=== PATIENT | female | born 1950 | race Caucasian/White ===

== ENCOUNTER → 2016-11-27 | Outpatient (REF) | payer OTHER | LOC: M LAB REF 15:46 | PROVIDERS: ATTEND Internal Medicine Endocrinology, Diabetes & Metabolism | DX: E04.1 Nontoxic single thyroid nodule (principal) ==

== ENCOUNTER → 2021-03-15 | Outpatient (CLI) | payer MEDICARE, OTHER ==
--- NOTE | 2021-03-15 13:12 | REP ---
INDICATION: NICOTINE DEP. COMPARISON: Multiple the latest 01/20/2020 also low-dose screening CT of the lungs TECHNIQUE: Axial noncontrast images from the thoracic inlet to the upper abdomen using low-dose lung screening technique (LDCT). Once again, as per the protocol only lung window images were sent to the read station for interpretation. FINDINGS: The right apical asymmetric density is stable. The 9 mm sized area of smoothly marginated focal pleural thickening in the right upper lobe posteriorly is stable. Scattered areas of calcific pleural plaquing are noted status quo. There are emphysematous changes with cylindrical bronchiectasis status quo. Multiple right ribs have been resected status quo. Grossly, the imaged osseous structures and imaged upper abdomen are unchanged. Grossly, the mediastinum and pulmonary anthony are unchanged. IMPRESSION: Stable lung rads category 2 low-dose screening CT of the lungs. No significant change from the prior exam. <Electronically signed by Grayson Eubanks > 03/15/21 7947
== END ==
LOC: M RAD 11:22
PROVIDERS: ATTEND Physician Assistant
DX: Z87.891 Personal history of nicotine dependence (principal)

== ENCOUNTER → 2021-04-14 | Outpatient (CLI) | payer MEDICARE, OTHER ==
[~2021-04-14] MED LIST: ALBU8.5H INH; ANOR1AER INH; IBUP-1114 PO
== END ==
LOC: M LABSMTC 11:30
PROVIDERS: ATTEND Anesthesiology
DX: Z01.812 Encounter for preprocedural laboratory examination (principal); Z20.822 Contact with and (suspected) exposure to COVID-19

== ENCOUNTER 2021-04-19 09:19 | Day surgery (SDC) | payer MEDICARE, OTHER ==
[~2021-04-19] VITALS: Ht 165.1 cm; Wt 57.2 kg
[~2021-04-19 09:19] MED LIST changes: +NS 1,000 ML IV ONE
--- OUTSIDE RECORDS SUMMARY | 2021-04-19 09:24 | CCD | Continuity of Care Document ---
Author Author Emely HAWTHORNE PA-C Organization Unknown Address [address] [place] [address] Phone [phone] Care Team Providers Care Masonry Inspector Name Role Phone WilnerAida DO AUTM [phone] Problems Active Problems Provider Date Synovitis and tenosynovitis Onset: 03/03 Social History Type Date Description Comments Sex Unknown ETOH Use Currently consumes alcohol Tobacco Use Start: Unknown Patient is a current smoker, smo kes every day Allergies and adverse reactions Description No Known Drug Allergies Medications Active Medications SIG Qnty Indications Ordering Provide r Date Ibuprofen 600mg Tablets 1 tab by mouth three times a day Unknown Immunizations Description No Information Available Vital Signs Date Vital Result Comment 03/15/2021 1:22pm Body Temperature 96.6 F Height 65 inches 5'5" Weight 129.12 lb BMI (Body Mass Index) 21.5 kg/m2 Results Description No Information Available Procedures Date Code Description Status 04/04/2021 48089 Office/Outpatient Established Mo d MDM 30-39 Min Completed 03/15/2021 62888 Office/Outpatient New Moderate M DM 45-59 Minutes Completed 03/15/2021 85643 X-Ray Wrist Complete Completed 03/15/2021 32131 Inject Tendon Sheath, Ligament C ompleted Medical Devices Description No Information Available Encounters Type Date Location Provider Dx Diagnosis Office Visit 04/04/2021 9:45a Daryl Hawthorne PA-C M6 5.4 Radial styloid tenosynovitis [de Quervain] M18.11 Unil primary osteoarth of fi rst carpometacarp joint, r hand Office Visit 03/15/2021 1:00p Daryl Hawthorne PA-C M6 5.4 Radial styloid tenosynovitis [de Quervain] M18.11 Unil primary osteoarth of fi rst carpometacarp joint, r hand Assessments Date Code Description Provider 04/04/2021 M65.4 Radial styloid tenosynovitis [de Quervain] Gee Hawthorne PA-C 04/04/2021 M18.11 Unilateral primary o steoarthritis of first carpometacarpal joint, right hand Gee Hawthorne PA-C 03/15/2021 M65.4 Radial styloid tenosynovitis [de Quervain] Gee Hawthorne PA-C 03/15/2021 M18.11 Unilateral primary o steoarthritis of first carpometacarpal joint, right hand Gee Hawthorne PA-C Plan of Treatment 04/04/2021 - Gee Hawthorne PA-C* M65.4 Radial styloid tenosynovitis [de Quervain]* Follow up:* prn * M18.11 Unilateral primary osteoarthritis of first carpometacarpal joint, right hand Functional Status Description No Information Available Mental Status Description No Information Available Referrals Description No Information Available
--- OUTSIDE RECORDS SUMMARY | 2021-04-19 09:24 | CCD ---
Author Author [facility] Organization [facility] Address Unknown Phone Unavailable Care Team Providers Care Fence Maker Name Role Phone Aida Boswell Unavailable PROBLEMS No Information ALLERGIES No Known Allergies ENCOUNTERS from 1950 to 2021-02-20 Encounter Location Date Provider Diagnosis [facility] [address] [place] [address] Feb, Aida Boswell Right wrist pain M25.531 ; Annual physic al exam Z00.00 ; Breast cancer screening by mammogram Z12.31 ; Colon cancer screening Z12.11 and Encounter for immunization Z23 IMMUNIZATIONS Vaccine Route Administration Date Status TDAP 0.5mL Boostrix IM Intramuscular Feb 15, 2021 Administere d COVID-19 dose #2 given elsewhere Unspecified Unknown Jul Administered COVID-19 dose #1 given elsewhere Unspecified Unknown Jun 21, 2020 Administered Influenza 18 yrs & older Flublok IM Intramuscular Feb 15, 2021 Administered SOCIAL HISTORY Tobacco Use: Social History Observation Description Date Details (start date - stop date) Current Smoker Sex Assigned At : Social History Observation Description Sex Assigned At Unknown Language: Question Answer Notes Languages spoken: Grenadian Sabianism: Question Answer Notes Sabianism No restorationist beliefs that would impact health care. Domestic Violence: Question Answer Notes Status: Alcohol Screening: Question Answer Notes Did you have a drink containing alcohol in the past year? Ye s Points 1 Interpretation Negative How often did you have six or more drinks on one occas ion in the past year? Never (0 points) How many drinks did you have on a typica l day when you were drinking in the past year? 1 or 2 (0 points) How often did you have a drink containing alcohol in t he past year? Monthly or less (1 point) Tobacco Use: Question Answer Notes Are you a: current smoker less than a pack a d ay Are you interested in quitting? Ready to quit Counseled the patient on tobacco use, cessation provided 10/2020 REASON FOR REFERRAL from 1950 to 2021-02-20 Reason R wrist pain chronically, wi th decreased ROM after bracing; please eval and treat. Diagnosis 1 Right wrist pain (M25.531) Referral Organization [facility] Referring Provider First Name Aida Referring Provider Last Name Andreia Referring Provider Specialty Family Medicine Referred Provider [facility],Doorkeeper apy Referred Provider Specialty Physical Therapist Referral Priority Routine General Notes Elver Mcdonald 02/15/2021 11:2 5:04 AM > faAida Gtz DO 02/15/2021 11:44:30 AM > she requests [facility] PTMElver Jimenez 02/15/2021 1:10:21 PM > refaxed to [place] Reason Patient with chronic R wrist pain, improved but not entirely alleviated with NSAIDs and bracing. Please eval and treat. Diagnosis 1 Right wrist pain (M25.531) Referral Organization [facility] Referring Provider First Name Aida Referring Provider Last Name Andreia Referring Provider Specialty Family Medicine Referred Provider [facility],Orthopedics Referred Provider Specialty Orthopedic Surgery Referral Priority Routine General Notes Elver Mcdonald 02/15/2021 11:2 3:10 AM > rx attachedElver Mcdonald 02/15/2021 11:24:22 AM > faxed Reason Never had a colonoscopy, ple ase eval and treat. Diagnosis 1 Colon cancer screening (Z12. 11) Referral Organization [facility] Referring Provider First Name Aida Referring Provider Last Name Andreia Referring Provider Specialty Family Medicine Referred Provider General Ericka HEWITT (TRINO cobb) Referred Provider Specialty General Surgery Referral Priority Routine Referral Appointment Date 2021-02-27 General Notes Elver Mcdonald 02/15/2021 1:07 :50 PM > faxElver Barrera 02/16/2021 3:41:56 PM > pt has appt. 02/27/21 at 9am VITAL SIGNS Weight 129.6 lbs Feb, Weight-kg 58.79 kg Feb, Height 5'5" in Feb, BMI 21.56 kg/m2 Feb, Heart Rate 107 /min Feb, Respiratory Rate 18 /min Feb, Temperature 98.1 degrees Fahrenheit Feb, Oximetry 99 Feb, Blood pressure systolic 132 mm Hg Feb, Blood pressure diastolic 84 mm Hg Feb, MEDICATIONS Medication SIG (Take, Route, Frequency, Duration) Notes Start Da te End Date Status Chantix 1 tab Oral for 14 days No t-Taking Ibuprofen 200 MG 2 tablets with food or milk as needed Orally prn Active PROCEDURES No Information RESULTS No Results REASON FOR VISIT 4 month, pt. is fully vaccinated MEDICAL (GENERAL) HISTORY Type Description Date Medical History neurofibromytosis Surgical History neurofibroma removal Surgical History neurofibroma nose Hospitalization History surgery related Goals Section No Information Health Concerns No Information MEDICAL EQUIPMENT No Information MENTAL STATUS No Information FUNCTIONAL STATUS No Information ASSESSMENTS Encounter Date Diagnosis Assessment Notes Treatment Notes Treatm ent Clinical Notes Feb, Right wrist pain (ICD-10 - M25.531) Feb, Annual physical exam (ICD-10 - Z00.00) Patient seen and examined. Past medical, surgical, family, social history reviewed. Discussed preventive medicine, including immunizations. Appropriate labwork was ordered 12/05 and is available under labs. Feb, Breast cancer screening by mammogram (ICD-10 - Z 12.31) Mammogram ordered. Feb, Colon cancer screening (ICD-10 - Z12.11) Feb, Encounter for immunization (ICD-10 - Z23) Immunizations reviewed. Any questions were answered. Patient agreed to immunization, and received vaccine in office today. PLAN OF TREATMENT Treatment Notes Assessment Notes Clinical Notes Annual physical exam Patient seen and ex amined. Past medical, surgical, family, social history reviewed. Discussed preventive medicine, including immunizations. Appropriate labwork was ordered 12/05 and is available under labs. Breast cancer screening by mammogram Gary mogram ordered. Encounter for immunization Immunizations reviewed. Any questions were answered. Patient agreed to immunization, and received vaccine in office today. Future Test Test Name Order Date Imm: Boostrix 0.5mL IM TDAP [id number] Imm: Flublok Quadrivalent 18 years & older 0.5mL IM In fluenza [id number] [facility] Janes Screening Bilateral (Ultrasound if Indicated ) (3D Mammo) [id number] Referrals Referral Date Details R wrist pain chronically, wi th decreased ROM after bracing; please eval and treat., Physical Therapy [facility] Patient with chronic R wrist pain, improved but not entirely alleviated with NSAIDs and bracing. Please eval and treat., Orthopedics [facility] 2021-02-27 2021-02-27, Never had a colo noscopy, please eval and treat., General Surgey ([facility]) [facility] Next Appt Details 2-3 months Reason:f/u labs Provider Name:Aida Boswell, 2021-04-17 11:00:00 AM, [address], , [place], [address], Follow Up:2-3 monthsf/u labs Insurance Providers Payer Name Payer Address Payer Phone Insured Name Patient Relati onship to Insured Coverage Start Date Coverage End Date MEDICARE Part A and B [address] [facility] [address] [phone] TEETEE FLOWERS A self [facility] [address] [address] [facility] [id number] COMPS[place]U,TEETEE A self
--- OUTSIDE RECORDS SUMMARY | 2021-04-19 09:24 | CCD | Continuity of Care Document ---
Author Author Emely HAWTHORNE PA-C Organization Unknown Address [address] [place] [address] Phone [phone] Care Team Providers Care Sas Sql Developer Name Role Phone iAda Darby DO AUTM [phone] Problems Active Problems Provider Date Synovitis and [...] Information Available Procedures Date Code Description Status 03/15/2021 93483 Office/Outpatient New Moderate M DM 45-59 Minutes Completed 03/15/2021 45939 X-Ray Wrist Complete Completed 03/15/2021 87128 Inject Tendon Sheath, Ligament C ompleted Medical Devices Description No Information Available Encounters Type Date Location Provider Dx Diagnosis Office Visit 03/15/2021 1:00p [place] Hawth[place] PA-C M6 5.4 Radial styloid tenosynovitis [de Quervain] M19.031 Primary osteoarthritis, righ t wrist Assessments Date Code Description Provider 03/15/2021 M65.4 Radial styloid tenosynovitis [de Quervain] Gee Hawthorne PA-C 03/15/2021 M19.031 Primary osteoarthritis, right wr ist Gee Hawthorne PA-C Plan of Treatment Future Appointment(s):* 04/04/2021 9:45 am - Gee Hawthorne PA-C at [place] 03/15/2021 - Gee Hawthorne PA-C* M65.4 Radial styloid tenosynovitis [de Quervain]* Follow up:* 2-3 weeks Rt wrist travon with BMS. * M19.031 Primary osteoarthritis, right wrist Functional Status Description No Information Available Mental Status Description No Information Available Referrals Description No Information Available
--- OUTSIDE RECORDS SUMMARY | 2021-04-19 09:24 | CCD | Continuity of Care Document ---
Author Author Emely BRUSH PA Organization Unknown Address [address] [place] [address] Phone [phone] Care Team Providers Care Sonogram Technician Name Role Phone Thuy White D.O. AUTM [phone] Tyrone Bowden MD AUTM [phone] Jesús Borrero AUTM [phone] AUTM Unavailable Aida Boswell D.O. AUTM [phone] Problems Active Problems Provider Date Centriacinar emphysema Dominic Mancera, PCelina Onset: 08/25/2020 Social History Type Date Description Comments Sex Unknown Tobacco Use Start: Unknown Current Cigarette Smoker 1 Pack Daily ETOH Use Occasionally consumes alcohol on e daily Tobacco Use Start: Unknown Patient is a current smoker, smo kes every day 1 ppd x50 years Recreational Drug Use Denies Drug Use Smoking Status Reviewed: 08/25/20 Patient is a current smoker, smokes every day 1 ppd x50 years Allergies and adverse reactions Description No Known Drug Allergies Medications Active Medications SIG Qnty Indications Ordering Provide r Date Chantix Continuing Month Tres 1mg T ablets 1 tab by mouth twice a day 1tabs J43.2 Simon Higginbotham DChayoOChayo 2020 Anoro Ellipta 62.5-25mcg/Inh Aeros ol 1 puff every day 60units Simon Higginbotham D.O. 02/11/2019 Ibuprofen 200mg Capsules by mouth as needed Unknown Immunizations CPT Code Status Date Vaccine Lot # [id number] Given 12/11/2019 Prevnar 13 [id number] Vital Signs Date Vital Result Comment 02/27/2021 9:06am BP Systolic 123 mmHg BP Diastolic 81 mmHg Body Temperature 97.1 F Height 65 inches 5'5" Weight 130.50 lb BMI (Body Mass Index) 21.7 kg/m2 [place] Body Weight 125 lb Weight 59.195 kg BSA (Body Surface Area) 1.65 m2 08/25/2020 2:45pm BP Systolic 124 mmHg BP Diastolic 82 mmHg Heart Rate 92 /min O2 % BldC Oximetry 95 % Body Temperature 97.4 F Height 65.5 inches 5'5.50" Weight 130.00 lb BMI (Body Mass Index) 21.3 kg/m2 [place] Body Weight 125 lb Weight 58.968 kg BSA (Body Surface Area) 1.66 m2 Results Description No Information Available Procedures Date Code Description Status 02/27/2021 76918 Office/Outpatient New Low MDM 30 -44 Minutes Completed Medical Devices Description No Information Available Encounters Type Date Location Provider Dx Diagnosis Office Visit 02/27/2021 9:00a [facility] MAX Murphy Z12.11 Encounter for screening for malignant ne oplasm of colon Assessments Date Code Description Provider 02/27/2021 Z12.11 Encounter for screening for des gnant neoplasm of colon MAX Mac Plan of Treatment Future Appointment(s):* 05/01/2021 10:15 am - MAX Mac at [facility] * 04/19/2021 10:30 am - Celestino Tsai DO at [facility] 02/27/2021 - MAX Mac* Z12.11 Encounter for screening for malignant neoplasm of colon Functional Status Functional Condition Comment Date Status Independent with all ADL's Activ e Independent with all IADL's Acti ve Mental Status Mental Condition Comment Date Status Cognitive ability not impaired A ctive Referrals Refer to Reason for Referral Status Appt Date Celestino Tsai D.O. SCHEDULE COLONOSCOPY Scheduled [address] [place], [place] [id number] [phone]
--- OUTSIDE RECORDS SUMMARY | 2021-04-19 09:24 | CCD | Continuity of Care Document ---
Author Author Emely BRUSH PA Organization Unknown Address [address] [facility] [address] [place] [address] Phone [phone] Care Team Providers Care Communications Assistant Name Role Phone Thuy White D.O. AUTM [phone] Tyrone Bowden MD AUTM [phone] Jesús Borrero AUTM [phone] AUTM Unavailable Aida Boswell D.O. AUTM Problems Active Problems Provider Date Centriacinar emphysema [...] CPT Code Status Date Vaccine Lot # [id number] Given 12/11/2019 Prevnar 13 [id number] Vital Signs Date Vital Result Comment 02/27/2021 9:06am BP Systolic 123 mmHg BP Diastolic 81 mmHg Body Temperature 97.1 F Height 65 inches 5'5" Weight 130.50 lb BMI (Body Mass Index) 21.7 kg/m2 [place] Body Weight 125 lb Weight 59.195 kg BSA (Body Surface Area) 1.65 m2 08/25/2020 2:45pm BP Systolic 124 mmHg BP Diastolic 82 mmHg Heart Rate 92 /min O2 % BldC Oximetry 95 % Body Temperature 97.4 F Height 65.5 inches 5'5.50" Weight 130.00 lb BMI (Body Mass Index) 21.3 kg/m2 [place] Body Weight 125 lb Weight 58.968 kg BSA (Body Surface Area) 1.66 m2 Results Description No Information Available Procedures Description No Information Available Medical Devices Description No Information Available Encounters Description No Information Available Assessments Description No Information Available Plan of Treatment No Information Available Functional Status Functional Condition Comment Date Status Independent with all ADL's Activ e Independent with all IADL's Acti ve Mental Status Mental Condition Comment Date Status Cognitive ability not impaired A ctive Referrals Refer to Reason for Referral Status Appt Date Celestino Tsai D.O. SCHEDULE COLONOSCOPY Scheduled [address] [place] [address] [phone]
--- OUTSIDE RECORDS SUMMARY | 2021-04-19 09:24 | CCD | Continuity of Care Document ---
Author Author [facility] Address [address] [place] [address] Phone Care Team Providers Care Client Sales And Service Officer Name Role Phone Thai ROBLES CYNTHIA PCP Health Concerns Health Concerns may be documented in an alternate section. Allergies, Adverse Reactions, Alerts No allergy information available. Social History Assigned Sex Female Problems No problem information available. Medications No medication information available. Immunizations No Immunization Information Available Medical Equipment No Medical Equipment Information available Procedures No procedure information available. Relevant Diagnostic Tests and/or Laboratory Data No known relevant diagnostic tests and/or laboratory data. Vital Signs No vital signs result information available. Insurance Providers Guarantor TEETEE FLOWERS Address [address] [place] [address] Contact Info. Home Phone: Payer Policy Id Coverage Id Subscriber's Name Subscriber Id Effective Date Expiration Date [facility] [id number] TEETEE FLOWERSus amor 2016 [employer] [id number] TEETEE FLOWERS [facility] [id number] TEETEE FLOWERS Encounters Encounter Location(s) Ar rival/Admit Date Discharge/Depart Date Provider(s) Discharged [facility] March 14, 2021 5:30am April 11, 2021 10:37am WATSON HAWTHORNE Discharged [facility] February 24, 2021 4:00am March 10, 2021 10:35am JELENA PAGE Functional Status No Functional Status information available Mental Status No Mental Status Information Available Assessments No Assessments Information Available Goals Goals may be documented in an alternate section.
--- OUTSIDE RECORDS SUMMARY | 2021-04-19 09:24 | CCD | Continuity of Care Document ---
Author Author Emely HAWTHORNE PA-C Organization Unknown Address [address] [place] [address] Phone [phone] Care Team Providers Care Laborer Car Barn Name Role Phone Wilner Aida M DO AUTM [phone] Problems Active Problems Provider Date Synovitis and [...] Available Procedures Date Code Description Status 03/15/2021 03430 Office/Outpatient New Moderate M DM 45-59 Minutes Completed 03/15/2021 10933 X-Ray Wrist Complete Completed 03/15/2021 43271 Inject Tendon Sheath, Ligament C ompleted Medical Devices Description No Information Available Encounters Type Date Location Provider Dx Diagnosis Office Visit 03/15/2021 1:00p [place] Gee Hawthorne PA-C M6 5.4 Radial styloid tenosynovitis [de Quervain] M18.11 Unil primary osteoarth of fi rst carpometacarp joint, r hand Assessments Date Code Description Provider 03/15/2021 M65.4 Radial styloid tenosynovitis [de Quervain] Gee Hawthorne PA-C 03/15/2021 M18.11 Unilateral primary o steoarthritis of first carpometacarpal joint, right hand Gee Hawthorne PA-C Plan of Treatment Future Appointment(s):* 04/04/2021 9:45 am - Gee Hawthorne PA-C at [place] 03/15/2021 - Gee Hawthorne PA-C* M65.4 Radial styloid tenosynovitis [de Quervain]* Follow up:* 2-3 weeks Rt wrist travon with BMS. * M18.11 Unilateral primary osteoarthritis of first carpometacarpal joint, right hand Functional Status Description No Information Available Mental Status Description No Information Available Referrals Description No Information Available
--- OUTSIDE RECORDS SUMMARY | 2021-04-19 09:24 | CCD | Continuity of Care Document ---
Author Author Emely HAWTHORNE PA-C Organization Unknown Address [address] [place] [address] Phone [phone] Care Team Providers Care Machine Chain Maker Name Role Phone Aida Darby DO AUTM [phone] Problems Active Problems Provider Date Synovitis and [...] Available Procedures Date Code Description Status 03/15/2021 14033 Office/Outpatient New Moderate M DM 45-59 Minutes Completed 03/15/2021 10085 X-Ray Wrist Complete Completed 03/15/2021 07148 Inject Tendon Sheath, Ligament C ompleted Medical Devices Description No Information Available Encounters Type Date Location Provider Dx Diagnosis Office Visit 03/15/2021 1:00p [place] Haw[place] PA-C M6 5.4 Radial styloid tenosynovitis [de Quervain] M19.031 Primary osteoarthritis, righ t wrist Assessments Date Code Description Provider 03/15/2021 M65.4 Radial styloid tenosynovitis [de Quervain] Gee Hawthorne PA-C 03/15/2021 M19.031 Primary osteoarthritis, right wr ist Gee Hawthorne PA-C Plan of Treatment Future Appointment(s):* 04/04/2021 9:45 am - Gee Hawthorne PA-C at [place] 03/15/2021 - Gee Hawthorne PA-C* M65.4 Radial styloid tenosynovitis [de Quervain]* Follow up:* 2-3 weeks Rt wrist travon with BMS. * M19.031 Primary osteoarthritis, right wrist Functional Status Description No Information Available Mental Status Description No Information Available Referrals Description No Information Available
--- OUTSIDE RECORDS SUMMARY | 2021-04-19 09:24 | CCD | Continuity of Care Document ---
Author Author [facility] Address [address] [place] [address] Phone Care Team Providers Care Roundhouse Supervisor Name Role Phone Thai ROBLES PCP Health Concerns Health Concerns may be [...] available. Insurance Providers Guarantor TEETEE FLOWERS Address [address] [place] [address] Contact Info. Home Phone: Payer Policy Id Coverage Id Subscriber's Name Subscriber Id Effective Date Expiration Date MEDICARE - [place] [id number] TEETEE FLOWERSus t 2016 [employer] [id number] TEETEE FLOWERS [facility] [id number] TEETEE FLOWERS Encounters Encounter Location(s) Ar rival/Admit Date Discharge/Depart Date Provider(s) Discharged [facility] February 24, 2021 5:00am March 10, 2021 11:35am JELENA PAGE Functional Status No Functional Status information available Mental Status No Mental Status Information Available Assessments No Assessments Information Available Goals Goals may be documented in an alternate section.
--- OUTSIDE RECORDS SUMMARY | 2021-04-19 09:25 | CCD ---
Author Author [facility] Organization [facility] Address Unknown Phone Unavailable Care Team Providers Care Vice President & General Manager [employer] Name Role Phone Mo, A Radha CORPORATE RESPONSIBILITY OFFICER Unavailable Unavailable Mo, A Radha CORPORATE RESPONSIBILITY OFFICER Unavailable Unavailable Mo, A Radha CORPORATE RESPONSIBILITY OFFICER Unavailable Unavailable Mo, A Radha CORPORATE RESPONSIBILITY OFFICER Unavailable Unavailable Mo, A Radha CORPORATE RESPONSIBILITY OFFICER Unavailable Unavailable Mo, A Radha CORPORATE RESPONSIBILITY OFFICER Unavailable Unavailable Mo, A Radha CORPORATE RESPONSIBILITY OFFICER Unavailable Unavailable Mo, A Radha CORPORATE RESPONSIBILITY OFFICER Unavailable Unavailable Mo, A Radha CORPORATE RESPONSIBILITY OFFICER Unavailable Unavailable Mo, A Radha CORPORATE RESPONSIBILITY OFFICER Unavailable Unavailable Mo, A Radha CORPORATE RESPONSIBILITY OFFICER Unavailable Unavailable Mo, A Radha CORPORATE RESPONSIBILITY OFFICER Unavailable Unavailable Mo, A Radha CORPORATE RESPONSIBILITY OFFICER Unavailable Unavailable Mo, A Radha CORPORATE RESPONSIBILITY OFFICER Unavailable Unavailable Mo, A Radha CORPORATE RESPONSIBILITY OFFICER Unavailable Unavailable Mo, A Radha CORPORATE RESPONSIBILITY OFFICER Unavailable Unavailable Mo, A Radha CORPORATE RESPONSIBILITY OFFICER Unavailable Unavailable Mo, A Radha CORPORATE RESPONSIBILITY OFFICER Unavailable Unavailable Mo, A Radha CORPORATE RESPONSIBILITY OFFICER Unavailable Unavailable Mo, A Radha CORPORATE RESPONSIBILITY OFFICER Unavailable Unavailable Mo, A Radha CORPORATE RESPONSIBILITY OFFICER Unavailable Unavailable Mo, A Radha CORPORATE RESPONSIBILITY OFFICER Unavailable Unavailable Mo, A Radha CORPORATE RESPONSIBILITY OFFICER Unavailable Unavailable Mo, A Radha CORPORATE RESPONSIBILITY OFFICER Unavailable Unavailable Mo, A Radha CORPORATE RESPONSIBILITY OFFICER Unavailable Unavailable Mo, A Radha CORPORATE RESPONSIBILITY OFFICER Unavailable Unavailable Mo, A Radha CORPORATE RESPONSIBILITY OFFICER Unavailable Unavailable Mo, A Radha CORPORATE RESPONSIBILITY OFFICER Unavailable Unavailable Mo, A Radha CORPORATE RESPONSIBILITY OFFICER Unavailable Unavailable Mo, A Radha CORPORATE RESPONSIBILITY OFFICER Unavailable Unavailable Mo, A Radha CORPORATE RESPONSIBILITY OFFICER Unavailable Unavailable Mo, A Radha CORPORATE RESPONSIBILITY OFFICER Unavailable Unavailable Mo, A Radha CORPORATE RESPONSIBILITY OFFICER Unavailable Unavailable Mo, A Radha CORPORATE RESPONSIBILITY OFFICER Unavailable Unavailable Mo, A Radha CORPORATE RESPONSIBILITY OFFICER Unavailable Unavailable Mo, A Radha CORPORATE RESPONSIBILITY OFFICER Unavailable Unavailable Mo, A Radha CORPORATE RESPONSIBILITY OFFICER Unavailable Unavailable Mo, A Radha CORPORATE RESPONSIBILITY OFFICER Unavailable Unavailable Mo, A Radha CORPORATE RESPONSIBILITY OFFICER Unavailable Unavailable Mo, A Radha CORPORATE RESPONSIBILITY OFFICER Unavailable Unavailable Mo, A Radha CORPORATE RESPONSIBILITY OFFICER Unavailable Unavailable Mo, A Radha CORPORATE RESPONSIBILITY OFFICER Unavailable Unavailable Mo, A Radha CORPORATE RESPONSIBILITY OFFICER Unavailable Unavailable Mo, A Radha CORPORATE RESPONSIBILITY OFFICER Unavailable Unavailable Mo, A Radha CORPORATE RESPONSIBILITY OFFICER Unavailable Unavailable Mo, A Radha CORPORATE RESPONSIBILITY OFFICER Unavailable Unavailable Mo, A Radha CORPORATE RESPONSIBILITY OFFICER Unavailable Unavailable Mo, A Radha CORPORATE RESPONSIBILITY OFFICER Unavailable Unavailable Mo, A Radha CORPORATE RESPONSIBILITY OFFICER Unavailable Unavailable Mo, A Radha CORPORATE RESPONSIBILITY OFFICER Unavailable Unavailable Mo, A Radha CORPORATE RESPONSIBILITY OFFICER Unavailable Unavailable Mo, A Radha CORPORATE RESPONSIBILITY OFFICER Unavailable Unavailable Mo, A Radha CORPORATE RESPONSIBILITY OFFICER Unavailable Unavailable Mo, A Radha CORPORATE RESPONSIBILITY OFFICER Unavailable Unavailable Mo, A Radha CORPORATE RESPONSIBILITY OFFICER Unavailable Unavailable Mo, A Radha CORPORATE RESPONSIBILITY OFFICER Unavailable Unavailable Morris, M Barratt PA Unavailable Unavailable Morris, M Barratt PA Unavailable Unavailable Morris, M Barratt PA Unavailable Unavailable Morris, M Barratt PA Unavailable Unavailable Morris, M Barratt PA Unavailable Unavailable Morris, M Barratt PA Unavailable Unavailable Morris, M Barratt PA Unavailable Unavailable Morris, M Barratt PA Unavailable Unavailable Morris, M Barratt PA Unavailable Unavailable Morris, M Barratt PA Unavailable Unavailable Morris, M Barratt PA Unavailable Unavailable Morris, M Barratt PA Unavailable Unavailable Morris, M Barratt PA Unavailable Unavailable Morris, M Barratt PA Unavailable Unavailable Morris, M Barratt PA Unavailable Unavailable Morris, M Barratt PA Unavailable Unavailable Morris, M Barratt PA Unavailable Unavailable Morris, M Barratt PA Unavailable Unavailable Morris, M Barratt PA Unavailable Unavailable Morris, M Barratt PA Unavailable Unavailable Morris, M Barratt PA Unavailable Unavailable Morris, M Barratt PA Unavailable Unavailable Morris, M Barratt PA Unavailable Unavailable Morris, M Barratt PA Unavailable Unavailable Morris, M Barratt PA Unavailable Unavailable Morris, M Barratt PA Unavailable Unavailable Morris, M Barratt PA Unavailable Unavailable Morris, M Barratt PA Unavailable Unavailable Morris, M Barratt PA Unavailable Unavailable MARGARET, A CYNTHIA DO Unavailable Unavailable MARGARET, A CYNTHIA DO Unavailable Unavailable MARGARET, A CYNTHIA DO Unavailable Unavailable MARGARET, A CYNTHIA DO Unavailable Unavailable MARGARET, A CYNTHIA DO Unavailable Unavailable MARGARET, A CYNTHIA DO Unavailable Unavailable MARGARET, A CYNTHIA DO Unavailable Unavailable MARGARET, A CYNTHIA DO Unavailable Unavailable MARGARET, A CYNTHIA DO Unavailable Unavailable MARGARET, A CYNTHIA DO Unavailable Unavailable MARGARET, A CYNTHIA DO Unavailable Unavailable MARGARET, A CYNTHIA DO Unavailable Unavailable MARGARET, A CYNTHIA DO Unavailable Unavailable MARGARET, A CYNTHIA DO Unavailable Unavailable MARGARET, A CYNTHIA DO Unavailable Unavailable MARGARET, A CYNTHIA DO Unavailable Unavailable MARGARET, A CYNTHIA DO Unavailable Unavailable MARGARET, A CYNTHIA DO Unavailable Unavailable MARGARET, A CYNTHIA DO Unavailable Unavailable MARGARET, A CYNTHIA DO Unavailable Unavailable MARGARET, A CYNTHIA DO Unavailable Unavailable MARGARET, A CYNTHIA DO Unavailable Unavailable MARGARET, A CYNTHIA DO Unavailable Unavailable MARGARET, A CYNTHIA DO Unavailable Unavailable MARGARET, A CYNTHIA DO Unavailable Unavailable MARGARET, A CYNTHIA DO Unavailable Unavailable MARGARET, A CYNTHIA DO Unavailable Unavailable MARGARET, A CYNTHIA DO Unavailable Unavailable MARGARET, A CYNTHIA DO Unavailable Unavailable MARGARET, A CYNTHIA DO Unavailable Unavailable MARGARET, A CYNTHIA DO Unavailable Unavailable MARGARET, A CYNTHIA DO Unavailable Unavailable MARGARET, A CYNTHIA DO Unavailable Unavailable MARGARET, A CYNTHIA DO Unavailable Unavailable MARGARET, A CYNTHIA DO Unavailable Unavailable MARGARET, A CYNTHIA DO Unavailable Unavailable MARGARET, A CYNTHIA DO Unavailable Unavailable MARGARET, A CYNTHIA DO Unavailable Unavailable MARGARET, A CYNTHIA DO Unavailable Unavailable MARGARET, A CYNTHIA DO Unavailable Unavailable MARGARET, A CYNTHIA DO Unavailable Unavailable MARGARET, A CYNTHIA DO Unavailable Unavailable MARGARET, A CYNTHIA DO Unavailable Unavailable MARGARET, A CYNTHIA DO Unavailable Unavailable MARGARET, A CYNTHIA DO Unavailable Unavailable MARGARET, A CYNTHIA DO Unavailable Unavailable MARGARET, A CYNTHIA DO Unavailable Unavailable MARGARET, A CYNTHIA DO Unavailable Unavailable MARGARET, A CYNTHIA DO Unavailable Unavailable MARGARET, A CYNTHIA DO Unavailable Unavailable MARGARET, A CYNTHIA DO Unavailable Unavailable MARGARET, A CYNTHIA DO Unavailable Unavailable MARGARET, A CYNTHIA DO Unavailable Unavailable MARGARET, A CYNTHIA DO Unavailable Unavailable MARGARET, A CYNTHIA DO Unavailable Unavailable MARGARET, A CYNTHIA DO Unavailable Unavailable MARGARET, A CYNTHIA DO Unavailable Unavailable MARGARET, A CYNTHIA DO Unavailable Unavailable MARGARET, A CYNTHIA DO Unavailable Unavailable MARGARET, A CYNTHIA DO Unavailable Unavailable MARGARET, A CYNTHIA DO Unavailable Unavailable MARGARET, A CYNTHIA DO Unavailable Unavailable MARGARET, A CYNTHIA DO Unavailable Unavailable MARGARET, A CYNTHIA DO Unavailable Unavailable MARGARET, A CYNTHIA DO Unavailable Unavailable MARGARET, A CYNTHIA DO Unavailable Unavailable Wilner-Tartell, M Aida DO Unavailable Unavailabl e Wilner-Tartell, M Aida DO Unavailable Unavailabl e Wilner-Tartell, M Aida DO Unavailable Unavailabl e Wilner-Tartell, M Aida DO Unavailable Unavailabl e Wilner-Tartell, M Aida DO Unavailable Unavailabl e Wilner-Tartell, M Aida DO Unavailable Unavailabl e Wilner-Tartell, M Aida DO Unavailable Unavailabl e Wilner-Tartell, M Aida DO Unavailable Unavailabl e Wilner-Tartell, M Aida DO Unavailable Unavailabl e Wilner-Tartell, M Aida DO Unavailable Unavailabl e Wilner-Tartell, M Aida DO Unavailable Unavailabl e Wilner-Tartell, M Aida DO Unavailable Unavailabl e Wilner-Tartell, M Aida DO Unavailable Unavailabl e Wilner-Tartell, M Aida DO Unavailable Unavailabl e Wilner-Tartell, M Aida DO Unavailable Unavailabl e Wilner-Tartell, M Aida DO Unavailable Unavailabl e Wilner-Tartell, M Aida DO Unavailable Unavailabl e Wilner-Tartell, M Aida DO Unavailable Unavailabl e Wilner-Tartell, M Aida DO Unavailable Unavailabl e Wilner-Tartell, M Aida DO Unavailable Unavailabl e Wilner-Tartell, M Aida DO Unavailable Unavailabl e Wilner-Tartell, M Aida DO Unavailable Unavailabl e Wilner-Tartell, M Aida DO Unavailable Unavailabl e Wilner-Tartell, M Aida DO Unavailable Unavailabl e Wilner-Tartell, M Aida DO Unavailable Unavailabl e Wilner-Tartell, M Aida DO Unavailable Unavailabl e Wilner-Tartell, M Aida DO Unavailable Unavailabl e Wilner-Tartell, M Aida DO Unavailable Unavailabl e Wilner-Tartell, M Aida DO Unavailable Unavailabl e Wilner-Tartell, M Aida DO Unavailable Unavailabl e Wilner-Tartell, M Aida DO Unavailable Unavailabl e Wilner-Tartell, M Aida DO Unavailable Unavailabl e Wilner-Tartell, M Aida DO Unavailable Unavailabl e Wilner-Tartell, M Aida DO Unavailable Unavailabl e Wilner-Tartell, M Aida DO Unavailable Unavailabl e Wilner-Tartell, M Aida DO Unavailable Unavailabl e Wilner-Tartell, M Aida DO Unavailable Unavailabl e Wilner-Tartell, M Aida DO Unavailable Unavailabl e Wilner-Tartell, M Aida DO Unavailable Unavailabl e Wilner-Tartell, M Aida DO Unavailable Unavailabl e Wilner-Tartell, M Aida DO Unavailable Unavailabl e Wilner-Tartell, M Aida DO Unavailable Unavailabl e Wilner-Tartell, M Aida DO Unavailable Unavailabl e Wilner-Tartell, M Aida DO Unavailable Unavailabl e Wilner-Tartell, M Aida DO Unavailable Unavailabl e Wilner-Tartell, M Aida DO Unavailable Unavailabl e Wilner-Tartell, M Aida DO Unavailable Unavailabl e Wilner-Tartell, M Aida DO Unavailable Unavailabl e Wilner-Tartell, M Aida DO Unavailable Unavailabl e Wilner-Tartell, M Aida DO Unavailable Unavailabl e Wilner-Tartell, M Aida DO Unavailable Unavailabl e Wilner-Tartell, M Aida DO Unavailable Unavailabl e Wilner-Tartell, M Aida DO Unavailable Unavailabl e Wilner-Tartell, M Aida DO Unavailable Unavailabl e Wilner-Tartell, M Aida DO Unavailable Unavailabl e Hernandez, L Nanda RPA Unavailable Unavailable Hernandez, L Nanda RPA Unavailable Unavailable Hernandez, L Nanda RPA Unavailable Unavailable Hernandez, L Nanda RPA Unavailable Unavailable Hernandez, L Nanda RPA Unavailable Unavailable Hernandez, L Nanda RPA Unavailable Unavailable Hernandez, L Nanda RPA Unavailable Unavailable Hernandez, L Nanda RPA Unavailable Unavailable Hernandez, L Nanda RPA Unavailable Unavailable Hernandez, L Nanda RPA Unavailable Unavailable Hernandez, L Nanda RPA Unavailable Unavailable Hernandez, L Nanda RPA Unavailable Unavailable Hernandez, L Nanda RPA Unavailable Unavailable Hernandez, L Nanda RPA Unavailable Unavailable Hernandez, L Nanda RPA Unavailable Unavailable Hernandez, L Nanda RPA Unavailable Unavailable Hernandez, L Nanda RPA Unavailable Unavailable Hernandez, L Nanda RPA Unavailable Unavailable Hernandez, L Nanda RPA Unavailable Unavailable Hernandez, L Nanda RPA Unavailable Unavailable Hernandez, L Nanda RPA Unavailable Unavailable Hernandez, L Nanda RPA Unavailable Unavailable Hernandez, L Nanda RPA Unavailable Unavailable Hernandez, L Nanda RPA Unavailable Unavailable Hernandez, L Nanda RPA Unavailable Unavailable Hernandez, L Nanda RPA Unavailable Unavailable Hernandez, L Nanda RPA Unavailable Unavailable Hernandez, L Nanda RPA Unavailable Unavailable Hernandez, L Nanda RPA Unavailable Unavailable Hernandez, L Nanda RPA Unavailable Unavailable Hernandez, L Nanda RPA Unavailable Unavailable Hernandez, L Nanda RPA Unavailable Unavailable TONTARSKI, G HARPER PA Unavailable Unavailable TONTARSKI, G HARPER PA Unavailable Unavailable TONTARSKI, G HARPER PA Unavailable Unavailable TONTARSKI, G HARPER PA Unavailable Unavailable TONTARSKI, G HARPER PA Unavailable Unavailable TONTARSKI, G HARPER PA Unavailable Unavailable TONTARSKI, G HARPER PA Unavailable Unavailable TONTARSKI, G HARPER PA Unavailable Unavailable TONTARSKI, G HARPER PA Unavailable Unavailable TONTARSKI, G HARPER PA Unavailable Unavailable TONTARSKI, G HARPER PA Unavailable Unavailable TONTARSKI, G HARPER PA Unavailable Unavailable TONTARSKI, G HARPER PA Unavailable Unavailable TONTARSKI, G HARPER PA Unavailable Unavailable TONTARSKI, G HARPER PA Unavailable Unavailable TONTARSKI, G HARPER PA Unavailable Unavailable TONTARSKI, G HARPER PA Unavailable Unavailable TONTARSKI, G HARPER PA Unavailable Unavailable TONTARSKI, G HARPER PA Unavailable Unavailable TONTARSKI, G HARPER PA Unavailable Unavailable TONTARSKI, G HARPER PA Unavailable Unavailable TONTARSKI, G HARPER PA Unavailable Unavailable TONTARSKI, G HARPER PA Unavailable Unavailable TONTARSKI, G HARPER PA Unavailable Unavailable TONTARSKI, G HARPER PA Unavailable Unavailable TONTARSKI, G HARPER PA Unavailable Unavailable TONTARSKI, G HARPER PA Unavailable Unavailable TONTARSKI, G HARPER PA Unavailable Unavailable TONTARSKI, G HARPER PA Unavailable Unavailable TONTARSKI, G HARPER PA Unavailable Unavailable TONTARSKI, G HARPER PA Unavailable Unavailable TONTARSKI, G HARPER PA Unavailable Unavailable TONTARSKI, G HARPER PA Unavailable Unavailable TONTARSKI, G HARPER PA Unavailable Unavailable TONTARSKI, G HARPER PA Unavailable Unavailable TONTARSKI, G HARPER PA Unavailable Unavailable TONTARSKI, G HARPER PA Unavailable Unavailable TONTARSKI, G HARPER PA Unavailable Unavailable TONTARSKI, G HARPER PA Unavailable Unavailable TONTARSKI, G HARPER PA Unavailable Unavailable TONTARSKI, G HARPER PA Unavailable Unavailable TONTARSKI, G HARPER PA Unavailable Unavailable TONTARSKI, G HARPER PA Unavailable Unavailable TONTARSKI, G HARPER PA Unavailable Unavailable TONTARSKI, G HARPER PA Unavailable Unavailable TONTARSKI, G HARPER PA Unavailable Unavailable TONTARSKI, G HARPER PA Unavailable Unavailable TONTARSKI, G HARPER PA Unavailable Unavailable FREDERICK, M ERICH PA Unavailable Unavailable FREDERICK, M ERICH PA Unavailable Unavailable FREDERICK, M ERICH PA Unavailable Unavailable FREDEIRCK, M ERICH PA Unavailable Unavailable FREDERICK, M ERICH PA Unavailable Unavailable FREDERICK, M ERICH PA Unavailable Unavailable FREDERICK, M ERICH PA Unavailable Unavailable FREDERICK, M ERICH PA Unavailable Unavailable FREDERICK, M ERICH PA Unavailable Unavailable FREDERICK, M ERICH PA Unavailable Unavailable FREDERICK, M ERICH PA Unavailable Unavailable FREDERICK, M ERICH PA Unavailable Unavailable FREDERICK, M ERICH PA Unavailable Unavailable FREDERICK, M ERICH PA Unavailable Unavailable FREDERICK, M ERICH PA Unavailable Unavailable FREDERICK, M ERICH PA Unavailable Unavailable FREDERICK, M ERICH PA Unavailable Unavailable FREDERICK, M ERICH PA Unavailable Unavailable FREDERICK, M ERICH PA Unavailable Unavailable FREDERICK, M ERICH PA Unavailable Unavailable FREDERICK, M ERICH PA Unavailable Unavailable FREDERICK, M ERICH PA Unavailable Unavailable FREDERICK, M ERICH PA Unavailable Unavailable FREDERICK, M ERICH PA Unavailable Unavailable FREDERICK, M ERICH PA Unavailable Unavailable FREDERICK, M ERICH PA Unavailable Unavailable FREDERICK, M ERICH PA Unavailable Unavailable FREDERICK, M ERICH PA Unavailable Unavailable FREDERICK, M ERICH PA Unavailable Unavailable FREDERICK, M ERICH PA Unavailable Unavailable FREDERICK, M ERICH PA Unavailable Unavailable FREDERICK, M ERICH PA Unavailable Unavailable FREDERICK, M ERICH PA Unavailable Unavailable FREDERICK, M ERICH PA Unavailable Unavailable FREDERICK, M ERICH PA Unavailable Unavailable Re-disclosure Warning The records that you are about to access may contain information from federally-assisted alcohol or drug abuse programs. If such information is present, then the following federally mandated warning applies: This information has been disclosed to you from records protected by federal confidentiality rules (42 CFR part 2). The federal rules prohibit you from making any further disclosure of this information unless further disclosure is expressly permitted by the written consent of the person to whom it pertains or as otherwise permitted by 42 CFR part 2. A general authorization for the release of medical or other information is NOT sufficient for this purpose. The Federal rules restrict any use of the information to criminally investigate or prosecute any alcohol or drug abuse patient.The records that you are about to access may contain highly sensitive health information, the redisclosure of which is protected by Article 27-F of the [facility] Public Health law. If you continue you may have access to information: Regarding HIV / AIDS; Provided by facilities licensed or operated by the [facility] Office of Mental Health; or Provided by the [facility] Office for People With Developmental Disabilities. If such information is present, then the following [facility] mandated warning applies: This information has been disclosed to you from confidential records which are protected by state law. State law prohibits you from making any further disclosure of this information without the specific written consent of the person to whom it pertains, or as otherwise permitted by law. Any unauthorized further disclosure in violation of state law may result in a fine or mcfp sentence or both. A general authorization for the release of medical or other information is NOT sufficient authorization for further disc losure. Family History Family Member Name Family Member Gender Family Member Status Date o f Status Description Data Source(s) Unknown Unknown Problem [facility] ([facility]) Unknown Unknown Problem [facility] ([facility]) all healthy Encounters Encounter Providers Location Date Indications Data Source(s ) Outpatient Attender: Gee SANTANA Physical Therapy 08:45:00 AM EST [facility] ([facility]) Outpatient Attender: Gee SANTANA Physical Therapy 01:00:00 PM EDT [facility] ([facility]) Outpatient Attender: Gee GUILLERMOttender: Aida Reed DO 03/13/2021 03:35:00 PM EDT - 04/11/2021 03:37:00 PM [facility] Patient discharged. Outpatient Attender: Nanda Ackerman/Paz/Javon wilson 02/27/2021 09:00:00 AM EDT [facility] ([facility]) Outpatient Attender: Aida Boswell DO 02/24/2021 02:41:00 PM EDT - 03/10/2021 03:35:00 PM [facility] Patient discharged. [place]patient [id number] [id number] 02/15/2021 12:00:00 AM EDT eCW1 ([facility]) Outpatient Attender: Radha Hassan CORPORATE RESPONSIBILITY OFFICER 10/24/2020 04:22 :00 PM [facility] Outpatient [facility] 10/24/2020 12:00:00 AM EDT eCW1 ([facility]) Office Visit Attender: ERICH Ackerman/Paz/Tomi/Jenae duval 08/25/2020 02:30:00 PM EDT [facility] ([facility]) Outpatient Attender: HARPER Ortez Buildin g 04/27/2020 10:15:00 AM EST [facility] ([facility]) Outpatient Attender: CYNTHIA ROBLES DO 01/22/2017 10:00:[address] [facility] Outpatient Attender: CYNTHIA ROBLES DO 09/12/2016 11:00:[address] [facility] Outpatient Attender: CYNTHIA ROBLES DO EMERGENCY ROOM-[facility] 08/20/2016 01:20:00 PM EDT - 08/20/2016 01:20:00 PM EDT [facility] pital Immunizations Vaccine Date Status Description Data Source(s) COVID-19 VACCINE Moderna 03/10/2021 12:00:00 AM EDT completed [employer] Vaccine Series Complete: YESThis Data wa s Submitted to [facility] Via [employer]. influenza, recombinant, quadrIvalent,injectable, prese rvative free 02/15/2021 11:56:00 AM EDT completed eCW1 ([facility]) Tdap 02/15/2021 11:56:00 AM EDT completed [facility] COVID-19 dose #2 given elsewhere Unspecified 07/19/2020 11:4 9:00 AM EST completed eCW1 ([facility]) COVID-19 VACCINE Moderna 07/19/2020 12:00:00 AM EST completed [employer] Vaccine Series Complete: YESThis Data wa s Submitted to [facility] Via [employer]. COVID-19 dose #1 given elsewhere Unspecified 06/21/2020 11:4 9:00 AM EST completed eCW1 ([facility]) COVID-19 VACCINE Moderna 06/21/2020 12:00:00 AM EST completed [employer] Vaccine Series Complete: NOThis Data was Submitted to [facility] Via [employer]. Medications Medication Brand Name Start Date Product Form Dose Route Admi nistrative Instructions Pharmacy Instructions Status Indications Reaction Description Data Source(s) SUPREP BOWEL PREP KIT 17.5-3.13-1.6 gram SODIUM, POTASSIUM,M AG SULFATES 04/13/2021 12:00:00 AM EST [facility] 354 TAKE DIRECT ED BY DOCTOR TAKE DIRECTED BY DOCTOR SOLD: 04/13/2021 [facility] 100 mcg/0.5 mL 03/10/2021 12:00:00 AM EDT suspension 0 INJECT DIRECTED PER STANDING ORDER INJECT DIRECTED PER STANDING ORDER SOLD: 03/10/2021 [facility] 30 ACTUAT umeclidinium 0.0625 MG/ACTUAT / vilanterol 0.025 MG/ACTUAT Dry Powder Inhaler [Anoro] 62.5-25 mcg/actuation UMECLIDINIUM BRM/VILANTEROL TR 03/09/2021 12:00:00 AM EDT blister with device 60 INHALE 1 PUFF BY M OUTH ONCE DAILY INHALE 1 PUFF BY MOUTH ONCE DAILY SOLD: 03/09/2021 [facility] 90 mcg/actuation 11/11/2020 12:00:00 AM EDT HFA aerosol inha ler 8 TAKE 2 PUFFS BY MOUTH EVERY 4 HOURS NEEDED TAKE 2 PUFFS BY MOUTH EVERY 4 HOURS NEEDED SOLD: 11/12/2020 [facility] 1 mg 10/27/2020 12:00:00 AM EDT tablet 56 TAKE ONE TABLET BY MOUTH TWO TIMES A DAY TAKE ONE TABLET BY MOUTH TWO TIMES A DAY SOLD: 10/28/2020 [facility] 20 mg 10/24/2020 12:00:00 AM EDT tablet 14 TAKE TWO TABLETS BY MOUTH ONCE A DAY FOR 7 DAYS TAKE TWO TABLETS BY MOUTH ONCE A DAY FOR 7 DAYS SOLD: 2020 [facility] Prednisone 20 MG Oral Tablet predniSONE 20 MG predniSONE 20 MG 10/24/2020 12:00:00 AM EDT 2.0 {tablet} active pr edniSONE 20 MG eCW1 ([facility]) 1 mg 09/21/2020 12:00:00 AM EDT tablet 56 TAKE ONE TABLET BY MOUTH TWICE A DAY TAKE ONE TABLET BY MOUTH TWICE A DAY SOLD: 09/22/2020 [facility] Chantix Continuing Month Tres Chantix Continuing Month Tres 12:00:00 AM EDT ORAL active [facility] ([facility], ) 200 mcg/actuation 08/26/2020 12:00:00 AM EDT blister with de vice 30 INHALE 1 PUFF BY MOUTH ONCE DAILY INHALE 1 PUFF BY MOUTH ONCE DAILY SOLD: 08/27/2020 [facility] 30 ACTUAT umeclidinium 0.0625 MG/ACTUAT / vilanterol 0.025 MG/ACTUAT Dry Powder Inhaler [Anoro] 62.5-25 mcg/actuation UMECLIDINIUM BRM/VILANTEROL TR 08/26/2020 12:00:00 AM EDT blister with device 60 INHALE 1 PUFF BY M OUTH ONCE DAILY INHALE 1 PUFF BY MOUTH ONCE DAILY SOLD: 11/04/2020 [facility] 30 ACTUAT umeclidinium 0.0625 MG/ACTUAT / vilanterol 0.025 MG/ACTUAT Dry Powder Inhaler [Anoro] 62.5-25 mcg/actuation UMECLIDINIUM BRM/VILANTEROL TR 08/26/2020 12:00:00 AM EDT blister with device 60 INHALE 1 PUFF BY M OUTH ONCE DAILY INHALE 1 PUFF BY MOUTH ONCE DAILY SOLD: 09/29/2020 [facility] 30 ACTUAT umeclidinium 0.0625 MG/ACTUAT / vilanterol 0.025 MG/ACTUAT Dry Powder Inhaler [Anoro] 62.5-25 mcg/actuation UMECLIDINIUM BRM/VILANTEROL TR 08/26/2020 12:00:00 AM EDT blister with device 60 INHALE 1 PUFF BY M OUTH ONCE DAILY INHALE 1 PUFF BY MOUTH ONCE DAILY SOLD: 08/27/2020 [facility] 0.5 mg (11)- 1 mg (42) 08/26/2020 12:00:00 AM EDT tablets,do se pack 53 TAKE DIRECTED PER PACKAGE TAKE DIRECTED PER PACKAGE SOLD: 08/27/2020 [facility] 0.5 mg (11)- 1 mg (42) 03/14/2020 12:00:00 AM EST tablets,do se pack 53 USE DIRECTED IN PACKAGE USE DIRECTED IN PACKAGE SOLD: 03/17/2020 [facility] Insurance Providers Payer name Policy type / Coverage type Policy ID Covered republican ID Covered republican's relationship to tamez Policy Tamez Plan Information POMCO 2 [id number] 1 [id number] POMCO U [id number] Self [id number] POMCO [id number] SP [id number] POMCO [id number] S [id number] [place] MEDICARE DIVISION [id number] S [id number] [place] [id number] S [id number] [place] [id number] S [id number] [employer] MEDICARE 1 [id number] 1 [id number] [facility] Commercial [id number] Self [id number] MEDICARE [id number] S [id number] A [employer] Medigap Part B [id number] 15.0 Self [id number] Medicare [place] Medicare Primary [id number] Self [id number] [employer] Medigap Part B [id number] 15.0 Self [id number] Medicare [place] Medicare Primary [id number] Self [id number] [employer] Medigap Part B [id number] 15.0 Self [id number] Medicare [place] Medicare Primary [id number] Self [id number] MEDICARE - [place] [facility] [id number] S [id number] POM[employer] [id number] S [id number] [employer] Medigap Part B [id number] 15.0 Self [id number] Medicare [place] Medicare Primary [id number] Self [id number] [employer] (pr) Commercial [id number] Self [id number] [employer] (pr) Commercial [id number] Self [id number] [employer] (pr) Commercial 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, right wrist PRIMARY OSTE OARTHRITIS, RIGHT WRIST Diagnosis 03/14/2021 10:30:00 AM [facility] M65.4 Radial styloid tenosynovitis [de Quervai n] RADIAL STYLOID TENOSYNOVITIS [DE QUERVAI Diagnosis 03/14/2021 10:30:00 [facility] M25.531 Pain in right wrist PAIN IN RIGHT WRIST Diagnosis 1 05/14/2020 10:30:00 AM [facility] 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 Centriacinar emphysema Problem 08/25/2020 12:00:00 AM EDT [facility] ([facility], ) Surgeries/Procedures Procedure Description Date Indications Data Source(s) OFFICE OUTPATIENT VISIT 25 MINUTES 04/04/2021 12:00:00 AM EST [facility] ([facility]) INJECTION 1 TENDON SHEATH/LIGAMENT APONEUROSIS 021 12:00:00 AM EDT [facility] ([facility]) RADEX WRIST COMPLETE MINIMUM 3 VIEWS 03/15/2021 12:00: 00 AM EDT [facility] ([facility]) OFFICE OUTPATIENT NEW 45 MINUTES 03/15/2021 12:00:00 A M EDT [facility] ([facility]) OFFICE OUTPATIENT NEW 30 MINUTES 02/27/2021 12:00:00 A M EDT [facility] ([facility]) Results ID Date Data Source [id number] 04/14/2021 10:20:00 AM EST [facility] Name Value Range Interpretation Code Description Data Marge rce(s) Supporting Document(s) SARS-CoV-2 (COVID-19) RNA [Presence] in Respiratory specimen by KRISTYN with probe detection Not Detected [facility] This lab was ordered by [facility] and reported by [employer]. ID Date Data Source [id number] 08/25/2020 02:45:00 PM EDT [facility] ([facility]) Name Value Range Interpretation Code Description Data Marge rce(s) Supporting Document(s) PDFReport Laboratory test result [facility] ([facility], ) FVC-Pred 3.25 L [facility] ([facility], ) FVC-LLN 2.52 L [facility] ([facility], ) FVC-%Pred-Pre 72 L [facility] ([facility], ) FVC-Pre 2.34 L [facility] ([facility], ) Fev1-Pred 2.47 L [facility] ([facility]) Fev1-Pre 1.35 L [facility] ([facility], ) Fev1-%Pred-Pre 54 L [facility] ([facility], ) Fev6-Pred 3.12 L [facility] ([facility], ) Fev1-LLN 1.86 L [facility] ([facility]) Fev6-%Pred-Pre 75 L [facility] ([facility], ) Fev6-Pre 2.34 L [facility] ([facility]) Ilr3pjx-Pvhb 76 % [facility] ([facility], ) Fev6-LLN 2.40 L [facility] ([facility], ) Efv1tiu-%Pred-Pre 75 % [facility] ([facility]) Jet1hkl-Pcj 58 % [facility] ([facility]) Lfr3giw-PNQ 67 % [facility] ([facility]) Uwd7pyw-Aogn 96 % [facility] ([facility]) Dwj5jmi-Ehq 100 % [facility] ([facility]) FEFMax-Pred 6.03 L/E/sec [facility] ([facility], ) Wka0mcd-%Pred-Pre 104 % [facility] ([facility]) FEFMax-Pre 3.70 L/E/sec [facility] ([facility]) FEFMax-%Pred-Pre 61 L/E/sec [facility] ([facility]) FEFMax-LLN 4.23 L/E/sec [facility] ([facility]) Jti8210-Ojcx 2.08 L/E/sec [facility] ([facility]) Xdt0338-%Pred-Pre 31 L/E/sec [facility] ([facility]) Npv9343-Ihk 0.66 L/E/sec [facility]) Lvj9542-YYC 0.78 L/E/sec [facility] ([facility]) ExpTime-Pre 6.06 sec [facility] ([facility]) Iux9rtc5-Wxnn 79 % [facility] ([facility]) Ydl5gqc1-CKR 71 % [facility] ([facility]) Xht1uoa2-Xpk 58 % [facility] ([facility]) Pck2yqd1-%Pred-Pre 72 % [facility] ([facility]) ID Date Data Source [id number] 04/27/2020 12:00:00 AM EST [facility] Name Value Range Interpretation Code Description Data Marge rce(s) Supporting Document(s) SARS-CoV2 Rapid Antigen [facility] This lab was ordered by [facility] and reported by Milad Canales MD. Procedure Social History Code Duration Value Status Description Data Source(s ) Smoking 02/15/2021 12:00:00 AM EDT Current Smoker completed Curre nt Smoker [facility] Smoking 08/25/2020 12:00:00 AM EDT Patient is a current smoker, smokes some days completed Patient is a current smoker, smokes some days [facility] ([facility]) Vital Signs ID Date Data Source UNK Name Value Range Interpretation Code Description Data Source(s) Body temperature 96.6 [degF] 96.6 [degF] [facility] ([facility]) Body height 65 [in_i] 65 [in_i] [facility] ([facility]) 5'5" Body weight 129.12 [lb_av] 129.12 [lb_av] [facility] T ([facility]) Body mass index (BMI) [Ratio] 21.5 kg/m2 21.5 k g/m2 [facility] ([facility]) Body weight 130.50 [lb_av] 130.50 [lb_av] [facility] T ([facility]) Body mass index (BMI) [Ratio] 21.7 kg/m2 21.7 k g/m2 [facility] ([facility]) Systolic blood pressure 123 mm[Hg] 123 mm[Hg] M EDENT ([facility]) Diastolic blood pressure 81 mm[Hg] 81 mm[Hg] [facility] ([facility]) Body temperature 97.1 [degF] 97.1 [degF] [facility] Body height 65 [in_i] 65 [in_i] [facility] ([facility]) 5'5" [place] body weight 125 [lb_av] 125 [lb_av] MED[facility] T ([facility]) Body weight 59.195 kg 59.195 kg [facility] ([facility]) Body surface area Derived from formula 1.65 m2 1.65 m2 [facility] ([facility]) Body weight 129.6 [lb_av] 129.6 [lb_av] [facility]CW1 ([facility]) Body weight 58.79 kg 58.79 kg eCW1 ([facility]) Body height [in_i] eCW1 ([facility]) Body mass index (BMI) [Ratio] 21.56 kg/m2 21.56 kg/m2 [facility] Heart rate 107 /min 107 /min eCW1 ([facility]) Respiratory rate 18 /min 18 /min eCW1 ([facility]) Body temperature 98.1 [degF] 98.1 [degF] [facility] ( [facility]) Systolic blood pressure 132 mm[Hg] 132 mm[Hg] e CW1 ([facility]) Diastolic blood pressure 84 mm[Hg] 84 mm[Hg] [facility]) Body height 65.25 [in_i] 65.25 [in_i] eCW1 ([facility]) Body weight 135 [lb_av] 135 [lb_av] eCW1 ([facility]) Body mass index (BMI) [Ratio] 22.29 kg/m2 22.29 kg/m2 eCW1 ([facility]) Body temperature 97.4 [degF] 97.4 [degF] eCW1 ( [facility]) Heart rate 79 /min 79 /min eCW1 ([facility]) Respiratory rate 16 /min 16 /min eCW1 ([facility]) Oxygen saturation in Arterial blood by Pulse oximetry 98 % 98 % eCW1 ([facility]) [place] body weight 125 [lb_av] 125 [lb_av] MEDEN T ([facility], ) Oxygen saturation in Arterial blood by Pulse oximetry 95 % 95 % [facility] ([facility]) Body temperature 97.4 [degF] 97.4 [degF] [facility] ([facility]) Body height 65.5 [in_i] 65.5 [in_i] [facility] ([facility]) 5'5.50" Body weight 130.00 [lb_av] 130.00 [lb_av] MED[facility] T ([facility]) Body mass index (BMI) [Ratio] 21.3 kg/m2 21.3 k g/m2 [facility] ([facility]) Body weight 58.968 kg 58.968 kg [facility] ([facility]) Body surface area Derived from formula 1.66 m2 1.66 m2 [facility] ([facility]) Systolic blood pressure 124 mm[Hg] 124 mm[Hg] [facility] ([facility]) Diastolic blood pressure 82 mm[Hg] 82 mm[Hg] [facility] ([facility]) Heart rate 92 /min 92 /min [facility] ([facility]) Oxygen saturation in Arterial blood by Pulse oximetry 95 % 95 % [facility] ([facility]) Body temperature 97.4 [degF] 97.4 [degF] [facility] ([facility]) Body height 65.5 [in_i] 65.5 [in_i] [facility] ([facility]) 5'5.50" Body weight 130.00 [lb_av] 130.00 [lb_av] [facility] T ([facility]) Body mass index (BMI) [Ratio] 21.3 kg/m2 21.3 k g/m2 [facility]) [place] body weight 125 [lb_av] 125 [lb_av] [facility] T ([facility]) Body weight 58.968 kg 58.968 kg [facility] ([facility]) Body surface area Derived from formula 1.66 m2 1.66 m2 [facility] ([facility]) Diastolic blood pressure 78 mm[Hg] 78 mm[Hg] [facility] ([facility]) Heart rate 97 /min 97 /min [facility] ([facility]) Oxygen saturation in Arterial blood by Pulse oximetry 98 % 98 % [facility] ([facility]) Body temperature 96.8 [degF] 96.8 [degF] [facility] ([facility]) Body height 65.5 [in_i] 65.5 [in_i] [facility] ([facility]) 5'5.50" Body weight 122.50 [lb_av] 122.50 [lb_av] [facility] T ([facility]) Body weight 55.566 kg 55.566 kg [facility] ([facility]) Body surface area Derived from formula 1.62 m2 1.62 m2 [facility] ([facility]) Systolic blood pressure 130 mm[Hg] 130 mm[facility]Hg] [facility] Body mass index (BMI) [Ratio] 20.1 kg/m2 20.1 k g/m2 [facility] ([facility]) [place] body weight 125 [lb_av] 125 [lb_av] [facility] T ([facility]) Patient Treatment Plan of Care Planned Activity Planned Date Details Description Data Source (s) Prednisone 20 MG Oral Tablet 10/24/2020 12:00:00 AM EDT eCW1 ([facility])
[2021-04-19] MEDS ORDERED: propofoL 200 MG/20 ML VIAL As Ordered ONE ×2 (10:29→10:52)
--- NOTE | 2021-04-19 11:16 | ROOR ---
Patient Name: Emely Bagley Procedure Date: 04/19/2021 10:37 AM Date of : 1950 Age: 70 Room: [facility] Gender: Female Note Status: Finalized Procedure: Colonoscopy Indications: Screening for colorectal malignant neoplasm Providers: Celestino Tsai DO Referring MD: Aida Boswell DO Requesting Provider: Medicines: Propofol per Anesthesia Complications: No immediate complications. Procedure: Pre-Anesthesia Assessment: - Prior to the procedure, a History and Physical was performed, and patient medications and allergies were reviewed. The patient is competent. The risks and benefits of the procedure and the sedation options and risks were discussed with the patient. All questions were answered and informed consent was obtained. Patient identification and proposed procedure were verified by the physician, the nurse, the anesthesiologist and the fire technician in the endoscopy suite. Mental Status Examination: alert and oriented. Airway Examination: normal oropharyngeal airway and neck mobility. Respiratory Examination: clear to auscultation. CV Examination: normal. Prophylactic Antibiotics: The patient does not require prophylactic antibiotics. Prior Anticoagulants: The patient has taken no previous anticoagulant or antiplatelet agents. ASA Grade Assessment: II - A patient with mild systemic disease. After reviewing the risks and benefits, the patient was deemed in satisfactory condition to undergo the procedure. The anesthesia plan was to use monitored anesthesia care (MAC). Immediately prior to administration of medications, the patient was re-assessed for adequacy to receive sedatives. The heart rate, respiratory rate, oxygen saturations, blood pressure, adequacy of pulmonary ventilation, and response to care were monitored throughout the procedure. The physical status of the patient was re-assessed after the procedure. The Colonoscope was introduced through the anus and advanced to the cecum, identified by appendiceal orifice and ileocecal valve. The colonoscopy was performed without difficulty. The patient tolerated the procedure well. Findings: Internal hemorrhoids were found during retroflexion. The hemorrhoids were Grade II (internal hemorrhoids that prolapse but reduce spontaneously). A less than 5 mm polyp was found in the ascending colon. The polyp was hyperplastic. The polyp was removed with a jumbo cold forceps. Resection and retrieval were complete. Estimated blood loss was minimal. To prevent bleeding after the polypectomy, one hemostatic clip was successfully placed. There was no bleeding at the end of the procedure. Three semi-pedunculated polyps were found in the sigmoid colon and descending colon. The polyps were 4 to 15 mm in size. These polyps were removed with a hot snare. Resection and retrieval were complete. Estimated blood loss was minimal. Impression: - Internal hemorrhoids. - One less than 5 mm polyp in the ascending colon, removed with a jumbo cold forceps. Resected and retrieved. Clip was placed. - Three 4 to 15 mm polyps in the sigmoid colon and in the descending colon, removed with a hot snare. Resected and retrieved. Recommendation: - Patient has a contact number available for emergencies. The signs and symptoms of potential delayed complications were discussed with the patient. Return to normal activities tomorrow. Written discharge instructions were provided to the patient. - Repeat colonoscopy in 2 years for surveillance based on pathology results. - Return to physician customer assistant at appointment to be scheduled. Procedure Code(s): --- Professional --- 40183, Colonoscopy, flexible; with removal of tumor(s), polyp(s), or other lesion(s) by snare technique 74740, 59, Colonoscopy, flexible; with biopsy, single or multiple Diagnosis Code(s): --- Professional --- K63.5, Polyp of colon Z12.11, Encounter for screening for malignant neoplasm of colon K64.1, Second degree hemorrhoids CPT copyright 2019 [employer]. All rights reserved. The codes documented in this report are preliminary and upon disc inspector review may be revised to meet current compliance requirements. Celestino Tsai DO 04/19/2021 11:15:57 AM Electronically signed by Celestino Tsai DO Number of Addenda: 0 Note Initiated On: 04/19/2021 10:37 AM Estimated Blood Loss: Estimated blood loss was minimal.
[2021-04-19 11:37] VITALS: BP 141/85
== END 2021-04-19 11:38 | disposition home or self-care (01) ==
LOC: M OPP 09:19
PROVIDERS: ATTEND Surgery
DX: Z12.11 Encounter for screening for malignant neoplasm of colon (principal); Z86.010 Personal history of colon polyps; K63.5 Polyp of colon; K64.1 Second degree hemorrhoids; Q85.00 Neurofibromatosis, unspecified; J44.9 Chronic obstructive pulmonary disease, unspecified; Z79.899 Other long term (current) drug therapy; F17.210 Nicotine dependence, cigarettes, uncomplicated

== ENCOUNTER → 2022-04-02 | Outpatient (CLI) | payer MEDICARE, OTHER ==
[~2022-04-02] MED LIST changes: -NS 1,000 ML IV ONE
== END ==
LOC: M RAD 14:29
PROVIDERS: ATTEND Physician Assistant
DX: F17.218 Nicotine dependence, cigarettes, with other nicotine-induced disorders (principal)

== ENCOUNTER → 2023-04-09 | Outpatient (CLI) | payer MEDICARE, OTHER | LOC: M RAD 15:45 | PROVIDERS: ATTEND Physician Assistant | DX: Z87.891 Personal history of nicotine dependence (principal) ==

== ENCOUNTER → 2024-07-10 | Outpatient (CLI) | payer MEDICARE, OTHER | LOC: M RAD 10:30 | PROVIDERS: ATTEND Physician Assistant | DX: Z87.891 Personal history of nicotine dependence (principal) ==

== ENCOUNTER → 2024-11-10 | Outpatient (CLI) | payer MEDICARE, OTHER ==
[~2024-11-10] MED LIST changes: +ISOVUE-370 76% 100 ML VIAL As Ordered ONE
[2024-11-10 14:02] LABS: BASO # 0.1 10^3/uL (0.0-0.2); BASO % 0.7 % (0.0-1.0); EOS # 0.2 10^3/uL (0.0-0.5); EOS % 1.9 % (0.0-3.0); LYMPH # 1.3 10^3/uL (1.5-5.0); LYMPH % 11.6 % (24.0-44.0); MONO # 1.0 10^3/uL (0.0-0.8); MONO % 8.7 % (2.0-8.0); NEUTROPHILS # 8.8 10^3/uL (1.5-8.5); NEUTROPHILS % 76.8 % (36.0-66.0); PLATELET COUNT, AUTOMATED 617 10^3/uL (150-450)
[2024-11-10 14:40] LABS: ALT/SGPT 21 U/L (7.0-40); AST/SGOT 38 U/L (<34); CALCIUM LEVEL 9.4 MG/DL (8.3-10.6); CARBON DIOXIDE LEVEL 30 MMOL/L (20-31); CHLORIDE LEVEL 99 MMOL/L (98-107); CREATININE FOR GFR 0.61 MG/DL (0.55-1.30); GLOMERULAR FILTRATION RATE > 90.0 (>39); POTASSIUM SERUM 4.3 MMOL/L (3.5-5.1); SODIUM LEVEL 141 MMOL/L (136-145)
== END ==
LOC: M RAD 13:23
PROVIDERS: ATTEND Family Medicine
DX: Z87.01 Personal history of pneumonia (recurrent) (principal); D62 Acute posthemorrhagic anemia; R10.9 Unspecified abdominal pain; R69 Illness, unspecified; S36.039A Unspecified laceration of spleen, initial encounter; K66.1 Hemoperitoneum; W19.XXXA Unspecified fall, initial encounter; S36.899A Unspecified injury of other intra-abdominal organs, initial encounter; R07.89 Other chest pain; J44.9 Chronic obstructive pulmonary disease, unspecified; K76.0 Fatty (change of) liver, not elsewhere classified; K76.89 Other specified diseases of liver

== ENCOUNTER → 2024-12-22 | Outpatient (CLI) | payer MEDICARE, OTHER | LOC: M RAD 10:30 | PROVIDERS: ATTEND Family Medicine | DX: R93.5 Abnormal findings on diagnostic imaging of other abdominal regions, including retroperitoneum (principal); J43.2 Centrilobular emphysema; K76.89 Other specified diseases of liver; N28.1 Cyst of kidney, acquired; I70.0 Atherosclerosis of aorta | CPT/HCPCS: 74170; 82565; Q9967 ==

== ENCOUNTER → 2025-02-24 | Outpatient (CLI) | payer MEDICARE, OTHER ==
[~2025-02-24] MED LIST changes: -ISOVUE-370 76% 100 ML VIAL As Ordered ONE
== END ==
LOC: M SLEEP 20:00
PROVIDERS: ATTEND Physician Assistant
DX: G47.33 Obstructive sleep apnea (adult) (pediatric) (principal)

== ENCOUNTER → 2025-03-30 | Outpatient (CLI) | payer MEDICARE, OTHER ==
[~2025-03-30] MED LIST changes: +ISOVUE-370 76% 100 ML VIAL As Ordered ONE
[2025-03-30 11:50] LABS: CALCIUM LEVEL 9.0 MG/DL (8.3-10.6); CARBON DIOXIDE LEVEL 30.0 MMOL/L (20-31); CHLORIDE LEVEL 105.0 MMOL/L (98-107); CREATININE FOR GFR 0.74 MG/DL (0.55-1.30); GLOMERULAR FILTRATION RATE 85.4 (>39); POTASSIUM SERUM 4.4 MMOL/L (3.5-5.1); SODIUM LEVEL 140.0 MMOL/L (136-145)
== END ==
LOC: M RAD 10:33
PROVIDERS: ATTEND Family Medicine
DX: S36.029A Unspecified contusion of spleen, initial encounter (principal); X58.XXXA Exposure to other specified factors, initial encounter; Y92.9 Unspecified place or not applicable
CPT/HCPCS: 36415; 74160; 80048; Q9967

== ENCOUNTER → 2025-04-29 | Outpatient (CLI) | payer MEDICARE, OTHER ==
[~2025-04-29] MED LIST changes: -ISOVUE-370 76% 100 ML VIAL As Ordered ONE
== END ==
LOC: M SLEEP 20:00
PROVIDERS: ATTEND Physician Assistant
DX: G47.33 Obstructive sleep apnea (adult) (pediatric) (principal)